=== PATIENT | male | born 1995 | race Caucasian/White ===

== ENCOUNTER 2016-09-28 17:03 | Inpatient (IN) | payer OTHER ==
--- NOTE | ~2016-09-28 | PA ---
Unit #: [id number] #: [id number] Patient: MARYAM MCCURDY [id number] [place] [address] [id number] MR#: [id number] NAME: MARYAM MCCURDY ROOM: [facility] Age: 21 Sex: M Admission Date: 09/28/2016 : 1995 Date of Assessment: Attending Physician: Ronald White M.D. Admitting Physician: Ronald White M.D. PSYCHIATRIC ASSESSMENT DATE OF SERVICE 09/29/2016 INFORMANTS The patient, reliable; the patient's family, reliable. CHIEF COMPLAINT "The pain is killing me." HISTORY OF PRESENT ILLNESS Maryam Mccurdy is a 21-year-old man who reports that since he had LASIK surgery about 6 weeks ago, he has had chronic headaches like a migraine they would never stop. He has been seen and evaluated by several physicians and is on several medications for this, but continues to complain that they have no help. He says "I don't know what to do," and says he is worried that will not go away. His family was concerned about his safety and he was unable to contract, so he was admitted for assessment. PAST PSYCHIATRIC HISTORY The patient has recently started on citalopram from neurologist and states that has not been effective. He is currently taking other medications including Topamax for headaches, trazodone for insomnia, and sumatriptan for migraine breakthrough pain. FAMILY PSYCHIATRIC HISTORY None reported. SOCIAL HISTORY The patient is a single heterosexual man, who lives with his family. He has no pending legal charges. He is a high-school graduate, who has been doing some college and is studying computer networking. He has been unemployed due to his recent headaches. PAST MEDICAL HISTORY Significant for migraine headaches following LASIK eye surgery. MEDICATIONS [place] 10/650 every 6 hours p.r.n. for pain, hydroxyzine 25 mg b.i.d. for anxiety, ibuprofen 600 mg t.i.d. for pain, HydroEye daily for dry eyes, Topamax 25 mg daily for migraine prophylaxis. ALLERGIES Unit #: [id number] #: [id number] Patient: MARYAM MCCURDY No known medication allergies. SUBSTANCE ABUSE HISTORY None reported. MENTAL STATUS EXAMINATION Maryam presented as a neatly dressed and groomed man, who appeared his stated age. He stood 5 feet 10 inches tall, weighing 203 pounds. Vital signs were temperature 98.7, pulse 80, respirations 18, and blood pressure 113/68. His speech was spontaneous and easily understood. His musculoskeletal examination was calm. His mood was irritable and depressed with a congruent affect. He was alert and fully oriented. His memory and concentration were fair. His thought processes were goal directed with no active psychosis. He was equivocal about suicidal ideation, but stated "I just want the pain to stop." Insight and judgment were fair. Fund of knowledge and abstraction were fair. ASSETS AND LIABILITIES The patient is youthful, has supportive family, and presents voluntarily for treatment. Liabilities include acute onset of chronic pain. 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 AXIS II: No diagnosis. AXIS III: Chronic migraines versus stress headaches of recent onset. AXIS IV: AXIS V: PSYCHIATRIC PLAN The patient was admitted and placed on suicide precautions. I explained to the patient that we were unable to provide actual pain management services or neurological assessment, but noted that he is on a number of very low-dose medications for migraine prophylaxis. We chose to discontinue some of these and consolidate treatment by increasing Topamax to 50 mg b.i.d. and adding Cymbalta 30 mg daily for depression and pain. He will enroll in dual diagnosis groups and activities. A physical examination and laboratory studies will be ordered and reviewed. Treatment goals are establishment of improvement in mood, improvement in insight, and improvement in coping skills. DISCHARGE PLANNING Follow up with primary care physician. ESTIMATED LENGTH OF STAY 5 days. Dictated by... Ronald White M.D. [facility]/[place] TD: 09/30/2016 19:32 JOB #: [id number] Unit #: [id number] #: [id number] Patient: MARYAM MCCURDY PSYCHIATRIC ASSESSMENT Page 1 of 1 X Ronald White MD PSYCHIATRIC ASSESSMENT
--- NOTE | ~2016-09-28 | DS ---
Unit #: [id number] #: [id number] Patient: MARYAM CORTES [id number] [place] [address] [id number] MR#: [id number] NAME: MARYAM CORTES ROOM: [facility] Age: 21 Sex: M Admission Date: 09/28/2016 : 1995 Discharge Date: 09/30/2016 Attending Physician: Ronald White M.D. Primary Care Physician: Primary Care Physician No DISCHARGE SUMMARY REASON FOR ADMISSION Maryam is a 21-year-old man who reports that about 6 weeks ago, he had LASIK eye surgery and had the immediate onset of severe chronic unrelenting headaches, could only go away when he is asleep. According to his family, he has had this evaluated by a neurologist at couple of local emergency rooms, but no solutions had been found. He expressed hopelessness and saying he would "not be able to live with the pain," but had no specific suicide plan. He was admitted for assessment. DIAGNOSTIC STUDIES LABORATORY RESULTS: Please see hospital chart. HOSPITAL COURSE Maryam was admitted and placed on suicide precautions. Topamax was increased to 50 mg b.i.d. and citalopram, trazodone, Vistaril, amitriptyline, and Imitrex were discontinued due to lack of effectiveness. Cymbalta 30 mg daily was added for control of depression and pain. The patient had no immediate improvement in his pain control or he denied any photophobia, throbbing quality, aura, or other symptoms suggestive to me of a migraine. The following day, the patient stated that he "needed to get out of here and get some help," and I once again explained that are treatment options were design, but limited by our medical facilities. He contracted for safety and expressed frustration at his lack of relief, however, his contract for safety was considered sufficient for discharge. DISCHARGE DIAGNOSES AXIS I: Depression due to general medical condition (headache, pain) F06.31. AXIS II: No diagnosis. AXIS III: Chronic headaches. AXIS IV: AXIS V: DISCHARGE INSTRUCTIONS Follow up with primary care physician. DISCHARGE MEDICATIONS Topamax 50 mg b.i.d. for headache prophylaxis, Cymbalta 30 mg daily for depression. Other medications per primary care doctor. CONDITION AT DISCHARGE Fair. Unit #: [id number] #: [id number] Patient: MARYAM CORTES PROGNOSIS Fair. DIET AND ACTIVITY Per primary care doctor. Dictated by... Quinton Verduzco/yo TD: 09/30/2016 14:46 JOB #: [id number] DISCHARGE SUMMARY Page 1 of 1 X Ronald White MD X DISCHARGE SUMMARY
--- NOTE | ~2016-09-28 | HP ---
Unit #: [id number] #: [id number] Patient: MARYAM CORTES [id number] [place] [address] [id number] MR#: [id number] NAME: MARYAM CORTES ROOM: [facility] Age: 21 Sex: M Admission Date: 09/28/2016 : 1995 Attending Physician: Ronald White M.D. Admitting Physician: Ronald White M.D. Primary Care Physician: Primary Care Physician No HISTORY AND PHYSICAL HISTORY OF PRESENT ILLNESS Maryam is a 21 year old admitted to [address] [place] [address] after complaining of headaches, numbness and tingling over most of his body and feeling like he is a "zombie." He has had an extensive medical workup to include CT scan and MRI prior to this admission. PAST MEDICAL HISTORY Nothing significant. PAST SURGICAL HISTORY Oral. ALLERGIES No known drug allergies. SOCIAL HISTORY He denies cigarettes, alcohol and illicit drug use. FAMILY HISTORY Medically noncontributory. His family immigrated from [place] in the . REVIEW OF SYSTEMS CONSTITUTIONAL: No fever or chills. HEENT: Denies any sore throat, ear pain or runny nose. CARDIOVASCULAR: Denies chest pain, irregular heart rhythm or palpitations. CHEST: Denies shortness of breath or cough. No hemoptysis. GASTROINTESTINAL: Denies nausea, vomiting, diarrhea or chronic constipation. ENDOCRINE: Denies history of increased thirst or urination. No recent significant weight loss or gain. GENITOURINARY: Denies dysuria, frequency, or hematuria. SKIN: Denies any rashes. HEMATOLOGIC: Denies history of increased bleeding or bruising. MUSCULOSKELETAL: Denies any hot, swollen joints. No generalized muscle pain. NEUROLOGIC: Denies problems with vision or speech. No frequent, severe headaches. No numbness, tingling or weakness in any extremities. Denies loss of bladder or bowel control. CURRENT MEDICATIONS 1. Desyrel 50 mg q.h.s. 2. Topamax 50 mg b.i.d. 3. Cymbalta 30 mg daily. Unit #: [id number] #: [id number] Patient: MARYAM CORTES 4. Milk of Magnesia p.r.n. 5. Maalox p.r.n. 6. Tylenol p.r.n. PHYSICAL EXAMINATION GENERAL: Alert, well-nourished young man in no apparent distress. VITAL SIGNS: Blood pressure 113/68, heart rate 80, respirations 16, temperature 98.6. WEIGHT: 203. HEIGHT: 5 feet 10 inches. SKIN: Warm and dry without rash or lesion. HEENT: Normocephalic. TMs not viewed. Oral and nasal passages clear. Conjunctivae clear. PERRLA. EOMs intact. NECK: Supple without lymphadenopathy or thyromegaly. HEART: Regular rate and rhythm without murmur. LUNGS: Clear. ABDOMEN: Soft, nontender. : Not done. EXTREMITIES: No evidence of cyanosis, clubbing or edema. Moves all without focal deficit. NEUROLOGICAL: Grossly within normal limits. Cranial Nerves: II: Visual marquez are intact. III, IV AND : Extraocular movements are intact. Pupils are equal, round and reactive to light. V: Facial sensation is grossly normal. VII: Facial movements and expression are normal. VIII: Auditory acuity grossly intact. IX, X: Uvula is midline. Phonation is normal. XI: Patient shrugs shoulders and turns head normally. XII: Tongue protrudes in the midline. Sensory and Motor Function: Sensory and motor sensation is grossly normal. Motor: moves all extremities well. Coordination: Gait is normal. Deep Tendon Reflexes: Intact. IMPRESSION Psychiatric admission. RECOMMENDATIONS PSYCHIATRIC: Per psychiatrist. MEDICAL: See no contraindications to participate in facility's activities. MEDICAL PROGNOSIS Good. MEDICAL CONDITION Stable. Dictated by... Alexa Varela P.A.-C. for Quinton Brooks/candido TD: 09/29/2016 20:39 JOB #: [id number] Unit #: [id number] #: [id number] Patient: MARYAM CORTES HISTORY AND PHYSICAL Page 1 of 1 X Alexa Varela HISTORY AND PHYSICAL
== END 2016-09-30 14:05 | disposition home or self-care (01) | DRG 884 ==
LOC: P2L 17:03
DX: F06.31 Mood disorder due to known physiological condition with depressive features (principal); G43.909 Migraine, unspecified, not intractable, without status migrainosus